=== PATIENT | male | born 1960 | race Caucasian/White ===

== ENCOUNTER 2019-12-13 00:59 | Emergency (ER) | payer SELFPAY ==
--- NOTE | 2019-12-13 02:41 | RADIOLOGY REPORT (SQ) ---
EXAM DESCRIPTION: XR CHEST 2 VIEWS COMPLETED DATE/TME: 12/13/2019 00:00 CLINICAL HISTORY: 59 years, Male, sob COMPARISON: None. NUMBER OF VIEWS: TECHNIQUE: LIMITATIONS: None. FINDINGS: There is emphysema. There is mild interstitial pulmonary thickening. No evidence of acute pulmonary consolidation or pleural effusion. The heart and mediastinum are unremarkable. There is biapical pleural thickening. IMPRESSION: Emphysema, with mild interstitial pulmonary thickening. copyright 2010 [employer]- All Rights Reserved
[2019-12-13 03:45] LABS: ABSOLUTE BASOPHILS # (AUTO) 0.1 10^3/uL (0.0-0.2); ABSOLUTE EOSINOPHILS # (AUTO) 0.1 10^3/uL (0.0-0.6); ABSOLUTE LYMPHOCYTES (AUTO) 1.2 10^3/uL (0.5-4.7); ABSOLUTE MONOCYTES (AUTO) 1.2 10^3/uL (0.1-1.4); ABSOLUTE NEUT (AUTO) 5.4 10^3/uL (1.7-8.2); BASOPHILS % (AUTO) 0.8 % (0-2); EOSINOPHILS % (AUTO) 1.3 % (0-6); HEMATOCRIT 37.2 % (37.9-51.0); LYMPHOCYTES % (AUTO) 15.5 % (13-45); MEAN CORPUSCULAR VOLUME 92 fl (80-97); PLATELET COUNT 325 10^3/uL (150-450); RED BLOOD COUNT 4.06 10^6/uL (4.35-5.55); RED CELL DISTRIBUTION WIDTH 15.1 % (11.5-14.0); SEGMENTED NEUTROPHILS % (AUTO) 67.4 % (42-78); TOTAL CELLS COUNTED % (AUTO) 100 %
[2019-12-13 03:53] LABS: APPEARANCE,URINE CLEAR; BILIRUBIN,URINE NEGATIVE (NEGATIVE); COLOR,URINE YELLOW; GLUCOSE, URINE NEGATIVE (NEGATIVE); KETONES,URINE TRACE mg/dL (NEGATIVE); LEUKOCYTE ESTERASE,URINE NEGATIVE (NEGATIVE); NITRITE,URINE NEGATIVE (NEGATIVE); PROTEIN,URINE NEGATIVE (NEGATIVE)
[2019-12-13 04:01] LABS: ALBUMIN 3.9 g/dL (3.5-5.0); ALKALINE PHOSPHATASE 71 U/L (38-126); ANION GAP 8 (5-19); ASPARTATE AMINO TRANSFERASE 40 U/L (17-59); BILIRUBIN,TOTAL 0.5 mg/dL (0.2-1.3); BLOOD UREA NITROGEN 15 mg/dL (7-20); CALCIUM 9.2 mg/dL (8.4-10.2); CARBON DIOXIDE 28 mmol/L (22-30); CHLORIDE 100 mmol/L (98-107); GLUCOSE 115 mg/dL (75-110); TOTAL PROTEIN 7.2 g/dL (6.3-8.2)
--- NOTE | 2019-12-13 09:03 | ER Document Report ---
Entered by PREETI THOMAS SCRIBE 12/13/19 0744 Acting as scribe for:CLEO DALAL MD ED General - General Chief Complaint: Shortness Of Breath Stated Complaint: SHORTNESS OF BREATH Time Seen by Provider: 12/13/19 06:09 Information source: Patient Notes: This 59 year old male patient presents to the emergency department today with complaints of coughing episode. Patient states he watched TV all last night and this morning experienced a non-productive coughing episode that lasted x2 hours. Patient states this never happened before and denies chest pain. Denies any fever, chills, N/V/D, or other covid symptoms. Patient states he feels fine now, but did not know the reason for this episode. - Related Data Home Medications: bp pill Past Medical History - General Information source: Patient - Social History Smoking Status: Current Every Day Smoker Cigarette use (# per day): Yes Frequency of alcohol use: Occasional Lives with: Family Family History: Reviewed & Not Pertinent Patient has homicidal ideation: No GI Medical History: Reports: Other - Appendicitis Review of Systems - Review of Systems Constitutional: See HPI. denies: Chills, Fever EENT: No symptoms reported Cardiovascular: See HPI. denies: Chest pain Respiratory: See HPI, Cough - non-productive Gastrointestinal: See HPI. denies: Diarrhea, Nausea, Vomiting Genitourinary: No symptoms reported Male Genitourinary: No symptoms reported Musculoskeletal: No symptoms reported Skin: No symptoms reported Hematologic/Lymphatic: No symptoms reported Neurological/Psychological: No symptoms reported Physical Exam - Vital signs Vitals: Temp Pulse Resp BP Pulse Ox 98.7 F 108 H 16 186/85 H 95 12/13/19 01:24 12/13/19 01:24 12/13/19 01:24 12/13/19 01:24 12/13/19 01:24 - General General appearance: Appears well, Alert - HEENT Head: Normocephalic, Atraumatic Eyes: Normal Pupils: PERRL Pharynx: Normal. No: Erythema Neck: Normal, Supple - Respiratory Respiratory status: No respiratory distress Chest status: Nontender Chest palpation: Normal Notes: Trace expiratory wheezing in upper bilateral lungs. - Cardiovascular Rhythm: Regular Heart sounds: Normal auscultation, S1 appreciated, S2 appreciated Murmur: No - Extremities General upper extremity: Normal inspection. No: Edema General lower extremity: Normal inspection. No: Edema - Neurological Neuro grossly intact: Yes Cognition: Normal Orientation: AAOx4 Speech: Normal - Psychological Associated symptoms: Normal affect, Normal mood - Skin Skin Temperature: Warm Skin Moisture: Dry Skin Color: Normal Course - Re-evaluation Re-evalutation: 12/13/19 08:56 Patient resting comfortably not showing any signs of distress at this time. 12/13/19 08:59 Patient reports that his symptoms of shortness of breath has resolved and has not returned and is back to his normal self. Inasmuch as patient has COPD and in his pandemic environment I elected to have patient have a test for COVID-19 swab for testing for the virus. Patient agreed to that and understands that he is to self quarantine himself for the next 14 days if required. Once we learned the test results and if patient is negative he no longer needs to quarantine himself if he is negative on the testing. Patient is to continue his usual medications and as always we encourage patients to stop smoking tobacco. - Vital Signs Vital signs: Temp Pulse Resp BP Pulse Ox 98.7 F 108 H 20 179/100 H 94 12/13/19 01:24 12/13/19 01:24 12/13/19 07:01 12/13/19 07:01 12/13/19 07:01 12/13/19 08:56 Vital signs stable except for blood pressure 179/100 sinus tachycardia rate of 108 afebrile respiratory rate 20. Patient has not had his morning a.m. medications for blood pressure. - Laboratory Result Diagrams: 12/13/19 03:31 12/13/19 03:31 Laboratory results interpreted by me: 12/13/19 12/13/19 12/13/19 03:31 03:31 03:31 RBC 4.06 L Hgb 13.0 L Hct 37.2 L RDW 15.1 H [place] % (Auto) 15.0 H Sodium 135.8 L Glucose 115 H NT-Pro-B Natriuret Pep 218 H Urine Ketones Urine Urobilinogen 12/13/19 03:31 RBC Hgb Hct RDW [place] % (Auto) Sodium Glucose NT-Pro-B Natriuret Pep Urine Ketones TRACE H Urine Urobilinogen 4.0 H 12/13/19 08:57 Laboratory showed BNP of 218 otherwise no acute metabolic process occurring. - Diagnostic Test Radiology reviewed: Image reviewed, Reports reviewed Radiology results interpreted by me: 12/13/19 08:58 Chest x-ray shows emphysema no other acute process noted. - EKG Interpretation by Me Additional EKG results interpreted by me: 12/13/19 08:58 Twelve-lead EKG shows normal sinus rhythm rate of 76 with left atrial abnormality and left anterior fascicular block. Discharge - Discharge Clinical Impression: COPD exacerbation, Hypertension Condition: Stable Disposition: HOME, SELF-CARE Additional Instructions: : You were tested today for COVID-19 through a swab. Once test results have returned and you are negative on the testing then you can discontinue the 14-day quarantine that we have requested of you to begin. We also encourage you to stop smoking tobacco. Chronic Obstructive Lung Disease You have chronic obstructive lung disease (COPD). The symptoms come from emphysema (damage to small airways, with trapping of air in large sacks in the lung) and chronic bronchitis (repeated infection and damage to larger airways). The cause is almost always cigarette smoking, although dust exposure, asthma, and infections contribute. You should avoid fumes, dust, and smoke (especially tobacco smoke). Your condition will flare from time to time. There is no cure, but the symptoms can be treated. Bronchodilators (asthma medicine) are often helpful. Antibiotics help when infection is present. When shortness of breath is severe, we may prescribe cortisone medication. If medicine doesn't help enough, we can arrange for you to have an oxygen tank at home. Notify your doctor at once if sputum becomes thick, foul, or bloody, if you develop a fever or chest pain, or if your shortness of breath worsens. Forms: Elevated Blood Pressure I personally performed the services described in the documentation, reviewed and edited the documentation which was dictated to the scribe in my presence, and it accurately records my words and actions.
[2019-12-13 09:18] VITALS: BP 153/84
--- NOTE | 2019-12-13 12:06 | EKG REPORT ---
SEVERITY:- ABNORMAL ECG - SINUS RHYTHM LEFT ATRIAL ABNORMALITY LEFT ANTERIOR FASCICULAR BLOCK : Confirmed by: Ana Laura Taveras MD 13-Dec-2019 12:05:03
== END 2019-12-13 09:25 | disposition home or self-care (01) ==
LOC: ER 00:59
DX: J44.1 Chronic obstructive pulmonary disease with (acute) exacerbation (principal); Z20.828 Contact with and (suspected) exposure to other viral communicable diseases; F17.210 Nicotine dependence, cigarettes, uncomplicated; I10 Essential (primary) hypertension
CPT/HCPCS: 93005; 99285; 36415; 85025; 87635; 80053; 81001; 83880; 71046; 93010; C9803